=== PATIENT | female | born 1950 | race Caucasian/White ===

== ENCOUNTER 2025-02-27 14:22 | Outpatient (CLI) | payer MEDICARE ==
--- NOTE | 2025-02-27 20:06 | RADIOLOGY REPORT ---
EXAM: MR MRI LOWER EXTREMITY LEFT HISTORY: PAIN IN LEFT KNEE COMPARISON: None TECHNIQUE: Multiplanar, multisequence imaging of the left knee was performed without contrast FINDINGS: MEDIAL COMPARTMENT: Complex tearing of the central body of the medial meniscus extending to the peripheral 1/3. Opposing subchondral edema of the medial femoral condyle and anterolateral tibial plateau with a opposing near full- thickness to full-thickness cartilage loss. LATERAL COMPARTMENT: Intact lateral meniscus. Trace subchondral edema of the mesial aspect of the lateral femoral condyle PATELLOFEMORAL COMPARTMENT: No focal chondrosis or subchondral edema. CRUCIATE LIGAMENTS: Intact anterior and posterior cruciate ligaments. MEDIAL SUPPORTING STRUCTURES: Intact medial collateral ligament. LATERAL SUPPORTING STRUCTURES: Intact iliotibial band, lateral capsular ligament, fibular collateral ligament, popliteus, and biceps femoris tendons EXTENSOR MECHANISM: Intact JOINT SPACE/FLUID: Small to medium knee joint effusion. No intra-articular body. Popliteus tendon sheath ganglion cysts extruded of the posterolateral aspect of the proximal calf. BONES: No acute fracture, osseous contusion, or aggressive focal osseous lesion MUSCLES: Intermuscular fascial edema posterior to the popliteus. NEUROVASCULAR: Unremarkable OTHER: None IMPRESSION: 1. Complex tearing of the central body of the medial meniscus extending to the peripheral 1/ 2. Opposing subchondral edema of the medial femoral condyle and anterolateral tibial plateau with a opposing near full-thickness to full-thickness cartilage loss. 3. Small to medium knee joint effusion.
== END 2025-02-27 23:59 | disposition home or self-care (01) ==
LOC: MRI02 14:22
PROVIDERS: ATTEND Pediatrics Sports Medicine
DX: S83.232A Complex tear of medial meniscus, current injury, left knee, initial encounter (principal); M25.462 Effusion, left knee; M67.462 Ganglion, left knee; R60.0 Localized edema; M25.562 Pain in left knee; M94.262 Chondromalacia, left knee; X58.XXXA Exposure to other specified factors, initial encounter; Y93.89 Activity, other specified; Y92.89 Other specified places as the place of occurrence of the external cause; Y99.8 Other external cause status
CPT/HCPCS: 73721